=== PATIENT | male | born 1955 | race Hispanic/Latino ===

== ENCOUNTER 2017-12-28 11:21 | Emergency (ER) | payer OTHER ==
[2017-12-28] MEDS ORDERED: NORCO 10/325 ONE (11:34)
[2017-12-28] MEDS ORDERED: NORCO 10/325 PO ONE (11:39)
--- NOTE | 2017-12-28 11:40 | Emergency Department Report ---
Chief Complaint: Dental/Oral Stated Complaint: JAW/TEETH/LIP INJURY - HPI History of Present Illness: 62-year-old male presents with severe facial pain and several missing teeth. Patient states that he was hit by a nazario mechanism while moving around a load while at work. Patient states he was dazed for several minutes and is missing several teeth. Severe left-sided jaw pain. - Exam Vital Signs: Vital Signs 12/28/17 11:28 Temperature 98 F Pulse Rate 109 H Respiratory 18 Rate Blood Pressure 170/111 O2 Sat by Pulse 99 Oximetry Physical Exam: Visible dental fractures, patient has difficulty opening and closing his mouth MSE screening note: Focused history and physical exam performed. Due to findings the following was ordered: Screening Assessment/Plan/Differential Dx: Lip laceration, dental fractures, possible jaw fracture 1- This initial assessment/diagnostic orders/clinical plan/ treatment(s) is/are subject to change based on pt's health status, clinical progression and re- assessment by fellow clinical providers in the ED. Further treatment and workup at subsequent clinical provers discretion. Patient/guardians urged not to elope from ED as their condition may be serious if not clinically assessed and managed. 2-CT facial bones and head ED Disposition for MSE Condition: Stable
--- NOTE | 2017-12-28 12:48 | Cat Scan Report ---
CT HEAD WITHOUT CONTRAST: HISTORY: Head injury. TECHNIQUE: Sequential 2.5mm CT images. COMPARISON: none. FINDINGS: Cerebral Parenchyma: Within normal limits. Cerebellum: Within normal limits. Brainstem: Within normal limits. Ventricles: Normal. Sella: Normal. Extra-axial spaces: Normal. Basal Cisterns: Normal. Intracranial Hemorrhage: None. Midline Shift: None. Calvarium: Normal. Sinuses: Normal. Mastoid Air Cells: Normal. Visualized Orbits: Normal. IMPRESSION: Cranial CT scan within normal limits.
--- NOTE | 2017-12-28 12:49 | Cat Scan Report ---
CT FACIAL BONES WITHOUT CONTRAST: HISTORY: Facial injury. TECHNIQUE: Helical CT images with sagittal and coronal CT reformations. FINDINGS: There is mild mucosal thickening in the maxillary sinuses bilaterally. The remaining paranasal sinuses are adequately aerated. Previous endoscopic sinus surgery changes are suspected, correlate with history. No sinus wall fracture, fluid level or opacification. The orbital cavities are symmetric and intact. The mandible is intact. The skull base and upper cervical spine demonstrate no evidence for acute injury. IMPRESSION: Unremarkable CT of the facial bones. Mild chronic sinus disease. Sinus surgery changes.
--- NOTE | 2017-12-28 15:18 | Emergency Department Report ---
ED ENT HPI - General Chief complaint: Dental/Oral Stated complaint: JAW/TEETH/LIP INJURY Time Seen by Provider: 12/28/17 14:11 Source: patient Mode of arrival: Ambulatory Limitations: No Limitations - History of Present Illness Initial comments: 62-year-old male presents with anterior jaw and facial pain status post mechanical injury at work. She states that while moving a piece of equipment in his truck equipment suddenly jerked up and he was hit in the lower jaw/lip region. Patient stated several fragments of his teeth came out. Denies discrete loss of consciousness but was dazed for several minutes. Went to a primary care doctor which deferred into the ED. Patient denies any neck pain or any pain to any other body part. Visible laceration below left lower lip and of left upper lip. Patient has visible dental fractures. No other injuries reported. Unknown tetanus vaccine status. MD complaint: tooth pain -: This morning Location: tooth # 1 - Dental fractures here Severity: moderate Severity scale (0 -10): 7 Quality: aching, sharp Consistency: constant Improves with: none Worsens with: none Context- Dental: trauma Associated Symptoms: toothache - Related Data Previous Rx's Medication Instructions Recorded Last Taken Type Amoxicillin/Potassium Clav 1 each PO BID #20 tablet 12/28/17 Unknown Rx [Augmentin 875-125 Tablet] Chlorhexidine Mouthwash [Peridex] 15 ml MM BID #1 bottle 12/28/17 Unknown Rx HYDROcodone/ACETAMINOPHEN [Blossv[place] 1 each PO Q8H PRN #18 tablet 12/28/17 Unknown Rx 5-325 Tablet] Ibuprofen [Motrin] 800 mg PO Q8HR PRN #20 tablet 12/28/17 Unknown Rx Allergies Allergy/AdvReac Type Severity Reaction Status Date / Time No Known Allergies Allergy Unverified 12/28/17 11:33 ED Dental HPI - General Chief complaint: Dental/Oral Stated complaint: JAW/TEETH/LIP INJURY Time Seen by Provider: 12/28/17 14:11 Source: patient Mode of arrival: Ambulatory Limitations: No Limitations - Related Data Previous Rx's Medication Instructions Recorded Last Taken Type Amoxicillin/Potassium Clav 1 each PO BID #20 tablet 12/28/17 Unknown Rx [Augmentin 875-125 Tablet] Chlorhexidine Mouthwash [Peridex] 15 ml MM BID #1 bottle 12/28/17 Unknown Rx HYDROcodone/ACETAMINOPHEN [[place] 1 each PO Q8H PRN #18 tablet 12/28/17 Unknown Rx 5-325 Tablet] Ibuprofen [Motrin] 800 mg PO Q8HR PRN #20 tablet 12/28/17 Unknown Rx Allergies Allergy/AdvReac Type Severity Reaction Status Date / Time No Known Allergies Allergy Unverified 12/28/17 11:33 ED Review of Systems ROS: Stated complaint: JAW/TEETH/LIP INJURY Other details as noted in HPI Constitutional: denies: chills, fever Eyes: denies: eye pain, eye discharge, vision change ENT: denies: ear pain, throat pain Respiratory: denies: cough, shortness of breath, wheezing Cardiovascular: denies: chest pain, palpitations Endocrine: no symptoms reported Gastrointestinal: denies: abdominal pain, nausea, diarrhea Genitourinary: denies: urgency, dysuria Musculoskeletal: denies: back pain, joint swelling, arthralgia Skin: denies: rash, lesions Neurological: denies: headache, weakness, paresthesias Psychiatric: denies: anxiety, depression Hematological/Lymphatic: denies: easy bleeding, easy bruising ED Past Medical Hx - Past Medical History Previous Medical History?: No - Surgical History Past Surgical History?: Yes Additional Surgical History: "crushed pelvis" - Social History Smoking Status: Never Smoker Substance Use Type: None - Medications Home Medications: Home Medications Medication Instructions Recorded Confirmed Last Taken Type Amoxicillin/Potassium Clav 1 each PO BID #20 tablet 12/28/17 Unknown Rx [Augmentin 875-125 Tablet] Chlorhexidine Mouthwash [Peridex] 15 ml MM BID #1 bottle 12/28/17 Unknown Rx HYDROcodone/ACETAMINOPHEN [[place] 1 each PO Q8H PRN #18 tablet 12/28/17 Unknown Rx 5-325 Tablet] Ibuprofen [Motrin] 800 mg PO Q8HR PRN #20 tablet 12/28/17 Unknown Rx ED Physical Exam - General Limitations: No Limitations General appearance: alert, in no apparent distress - Head Head exam: Present: normocephalic - Expanded Head Exam Expanded Head exam: Present: laceration 1 - Laceration of lip here through vermilion border 2 - Y shaped 1 cm laceration below left lower lip - Eye Eye exam: Present: normal appearance - ENT ENT exam: Present: mucous membranes moist - Neck Neck exam: Present: normal inspection - Respiratory Respiratory exam: Present: normal lung sounds bilaterally. Absent: respiratory distress - Cardiovascular Cardiovascular Exam: Present: regular rate, normal rhythm. Absent: systolic murmur, diastolic murmur, rubs, gallop - GI/Abdominal GI/Abdominal exam: Present: soft, normal bowel sounds - Rectal Rectal exam: Present: deferred - Extremities Exam Extremities exam: Present: normal inspection - Back Exam Back exam: Present: normal inspection - Neurological Exam Neurological exam: Present: alert, oriented X3 - Psychiatric Psychiatric exam: Present: normal affect, normal mood - Skin Skin exam: Present: warm, dry, intact, normal color. Absent: rash ED Course Vital Signs 12/28/17 11:28 Temperature 98 F Pulse Rate 109 H Respiratory 18 Rate Blood Pressure 170/111 O2 Sat by Pulse 99 Oximetry - Laceration /Wound Repair Left Face Wound Location: face (left upper lip and below left lower lip) Wound Length (cm): 1 Suture Size/Type: 5:0, nylon Number of Sutures: 6 Progress: 2 separate lacerations infiltrated with lidocaine. Good local anesthesia achieved. 3 sutures placed on left upper lip laceration. 3 sutures placed on laceration below left lower lip. Good closure achieved. Procedure tolerated well with minimal bleeding. Lathered with ointment afterward. ED Medical Decision Making - Medical Decision Making A/P: Facial laceration, dental fracture, mandible contusion 1-CT shows no acute intracranial injury or mandible fracture 2-tetanus vaccine update today 3-I advised patient to follow up with dentist. I provided him with dental referral 4-Peridex mouthwash, Motrin when necessary, course of Augmentin, course of Blossv[place] for pain 5- I contacted phlebotomists /lab workers Ms. Bynum and Mr. Mccormack as patient is requesting drug testing for his employer. They collected drug screening materials. I did give patient one dose of Blossv[place] when I initially assessed him in triage secondary to his pain. This was done before his drug screening was collected. Critical care attestation.: If time is entered above; I have spent that time in minutes in the direct care of this critically ill patient, excluding procedure time. ED Disposition Clinical Impression: Lip laceration Qualifiers: Encounter type: initial encounter Qualified Code(s): S01.511A - Laceration without foreign body of lip, initial encounter Simple laceration of face Qualifiers: Encounter type: initial encounter Qualified Code(s): S01.81XA - Laceration without foreign body of other part of head, initial encounter Tooth fracture Qualifiers: Encounter type: initial encounter Fracture type: closed Qualified Code(s): S02.5XXA - Fracture of tooth (traumatic), initial encounter for closed fracture Disposition: TO HOME OR SELFCARE Is pt being admited?: No Does the pt Need Aspirin: No Condition: Stable Instructions: Toothache (ED), Acute dental trauma (ED), Laceration (ED), Suture Care (ED), Contusion in Adults (ED) Prescriptions: Amoxicillin/Potassium Clav [Augmentin 875-125 Tablet] 1 each PO BID #20 tablet Chlorhexidine Mouthwash [Peridex] 15 ml MM BID #1 bottle HYDROcodone/ACETAMINOPHEN [[place] 5-325 Tablet] 1 each PO Q8H PRN #18 tablet PRN Reason: Pain Ibuprofen [Motrin] 800 mg PO Q8HR PRN #20 tablet PRN Reason: Pain Referrals: [facility] [place] [Outside] - 3-5 Days Forms: Accompanied Note, Work/School Release Form(ED) Time of Disposition: 16:17
[2017-12-28] MEDS ORDERED: TRIPLE ANTIBIOTIC TP ONE (16:11)
[2017-12-28] MEDS ORDERED: MOTRIN PO ONE (16:12)
[2017-12-28] MEDS ORDERED: BOOSTRIX IM ONE (16:30)
[2017-12-28 16:50] VITALS: BP 151/106
== END 2017-12-28 16:49 | disposition home or self-care (01) ==
LOC: ED 11:21
DX: S02.5XXA Fracture of tooth (traumatic), initial encounter for closed fracture (principal); S01.81XA Laceration without foreign body of other part of head, initial encounter; S01.511A Laceration without foreign body of lip, initial encounter; W22.8XXA Striking against or struck by other objects, initial encounter; Y93.89 Activity, other specified; Y92.89 Other specified places as the place of occurrence of the external cause; Y99.8 Other external cause status
CPT/HCPCS: 70450; 70486; 90471; 90715; 99283; A6250